=== PATIENT | female | born 1965 | race Native Hawaiian/Other Pacific Islander ===

== ENCOUNTER 2017-03-05 10:00 | Outpatient (CLI) | payer OTHER ==
--- NOTE | 2017-03-05 10:50 | Mammography Report ---
Bilateral mammogram: Compared to 08/16/10. CAD study utilized. Findings: Predominance of adipose tissue bilaterally. Asymmetric subareolar density right breast. Benign calcification. Normal axilla. Impression: Asymmetric density subareolar area right breast. Recommend spot mag and sonographic examination. BI-RADS CATEGORY: 0 = Needs additional imaging evaluation ACR BI-RADS MAMMOGRAPHIC CODES: 0 = Needs additional imaging evaluation; 1 = Negative; 2 = Benign; 3 = Probably benign; 4 = Suspicious; 5 = Malignant; 6 = Known biopsy-proven malignancy COMMENT: 1. Dense breast tissue, i.e., adenosis, fibrocystic changes, etc., may obscure an underlying neoplasm. 2. Approximately 10% of cancers are not detected with mammography. 3. A negative mammography report should not delay biopsy if a clinically suspicious mass is present. COMMENT: Patient follow-up letters are generated in [facility].
== END 2017-03-05 10:01 | disposition home or self-care (01) ==
LOC: MAMMO 10:00
PROVIDERS: ATTEND Family Medicine
DX: Z12.31 Encounter for screening mammogram for malignant neoplasm of breast (principal)
CPT/HCPCS: 77067; G0202

== ENCOUNTER 2019-07-31 06:15 | Day surgery (SDC) | payer BC, OTHER ==
[2019-07-31] MEDS ORDERED: LACTATED RINGERS 1,000 ML IV SCH (07:00)
[2019-07-31] MEDS ORDERED: ANCEF/STERILE WATER 2 GM/20 ML IV NR (07:00)
--- NOTE | 2019-07-31 07:27 | Anesthesia Day of Surgery ---
Anesthesia Day of Surgery - Day of Surgery Patient Examined: Yes Patient H&P Reviewed: Yes Patient is NPO: Yes
--- NOTE | 2019-07-31 07:27 | Anesthesia Consultation ---
Anesthesia Consult and Med Hx Date of service: 07/31/19 - Airway Anesthetic Teeth Evaluation: Good ROM Head & Neck: Adequate Mental/Hyoid Distance: Adequate Mallampati Class: Class II Intubation Access Assessment: Good - Pulmonary Exam CTA: Yes - Cardiac Exam Cardiac Exam: RRR - Pre-Operative Health Status ASA Pre-Surgery Classification: ASA3 Proposed Anesthetic Plan: General (DM, HTN, high CHL for GA) - Pulmonary Hx Smoking: No Hx Sleep Apnea: No (ADELAIDA PRE SCREEN LOW RISK) - Cardiovascular System Hx Hypertension: Yes (TOLD 1 MUSCLE IN HEART BIGGER BUT OK.) Hx Heart Attack/AMI: No - Central Nervous System Hx Psychiatric Problems: No - Hematic Hx Anemia: Yes - Other Systems Hx Alcohol Use: Yes (R[employer]ER) Hx Substance Use: No Hx Cancer: No
[2019-07-31] MEDS ORDERED: ZOFRAN IV PRN (07:28)
[2019-07-31] MEDS ORDERED: DILAUDID IV PRN (07:28)
[2019-07-31] MEDS ORDERED: SUBLIMAZE ONE (07:57)
[2019-07-31] MEDS ORDERED: DIPRIVAN 10 MG/ML IV ONE (07:57)
[2019-07-31] MEDS ORDERED: VERSED IV NR (08:00)
[2019-07-31] MEDS ORDERED: XYLOCAINE MPF 2% ONE (08:02)
--- NOTE | 2019-07-31 08:26 | Post Operative Note ---
Date of procedure: 07/31/19 Pre-op diagnosis: r renal stone Post-op diagnosis: same Findings: same Procedure: r eswl Anesthesia: ASTER Surgeon: KWADWO GALICIA Estimated blood loss: none Pathology: none Condition: stable Disposition: PACU
--- NOTE | 2019-07-31 08:27 | Discharge Summary ---
Short Stay Discharge Plan Activity: other Weight Bearing Status: Full Weight Bearing Diet: regular, low salt Special Instructions: other (inc fluids ) Follow up with: LASHON BARRIOS MD [Primary Care Provider] - 7 Days KWADWO GALICIA MD [Staff Physician] - 7 Days
[2019-07-31] MEDS ORDERED: NEO SYNEPHRINE ONE (08:29)
[2019-07-31] MEDS ORDERED: ZOFRAN ONE (08:31)
[2019-07-31] MEDS ORDERED: REGLAN ONE (08:31)
[2019-07-31] MEDS ORDERED: DECADRON ONE (08:31)
--- NOTE | 2019-07-31 09:21 | Operative Report ---
PREOPERATIVE DIAGNOSIS: Right renal stone. POSTOPERATIVE DIAGNOSIS: Right renal stone. PROCEDURE: Right ESWL in situ. SURGEON: Dr. Mahajan. ANESTHESIA: General. FINDINGS: This is a woman with a right renal stone. She has intermittent discomfort. All risks and implications were discussed. She knows that she may have to pass the fragments. DESCRIPTION OF PROCEDURE: The patient was brought to the lithotripsy unit and placed on the table. Following the induction of anesthesia, stone was well localized and easily visible. Shocks were begun at 1 kV and increased to a maximum of 8 kV. The stone fragmented. There was a center of the stone, which was much more dense. The patient tolerated the procedure well. No significant complications and brought to recovery in stable condition. JOB# [id number] SAMMI/ROGELIO
[2019-07-31 09:25] VITALS: BP 100/59
--- NOTE | 2019-07-31 13:29 | Post Anesthesia Evaluation ---
- Post Anesthesia Evaluation Patient Participated: Yes Airway Patent: Yes Stable Respiratory Function: Yes Nausea/Vomiting: No Temp > 96.8F: Yes Pain Manageable: Yes Adequeate Hydration: Yes Anesthesia Complications: No Block Receding Appropriately: Not Applicable Patient on Ventilator: No
== END 2019-07-31 10:05 | disposition home or self-care (01) ==
LOC: OR 06:15
PROVIDERS: ATTEND Urology
DX: N20.1 Calculus of ureter (principal); E78.00 Pure hypercholesterolemia, unspecified; I10 Essential (primary) hypertension; K21.9 Gastro-esophageal reflux disease without esophagitis; E11.9 Type 2 diabetes mellitus without complications; Z79.899 Other long term (current) drug therapy; Z79.84 Long term (current) use of oral hypoglycemic drugs; Z90.710 Acquired absence of both cervix and uterus; Z72.89 Other problems related to lifestyle; Z98.890 Other specified postprocedural states; Z90.721 Acquired absence of ovaries, unilateral; Z86.2 Personal history of diseases of the blood and blood-forming organs and certain disorders involving the immune mechanism
CPT/HCPCS: 50590; 82962; J0690; J1100; J2250; J2370; J2405; J2704; J2765; J3010; J7120